=== PATIENT | female | born 1940 | race Caucasian/White ===

== ENCOUNTER 2021-10-09 05:18 | Inpatient (IN) | payer MEDICARE, BC ==
[2021-10-02 15:28] LABS: BASOPHILS # (AUTO) 0.1 X10'3 (0-0.2); BASOPHILS % (AUTO) 0.6 % (0-1); EOSINOPHILS # (AUTO) 0.2 X10'3 (0-0.9); EOSINOPHILS % (AUTO) 3.1 % (0-6); LYMPHOCYTES # (AUTO) 0.5 X10'3 (1.1-4.8); LYMPHOCYTES % (AUTO) 6.9 % (21-51); MEAN CORPUSCULAR HEMOGLOBIN 30.3 PG (27.0-31.0); MEAN CORPUSCULAR HGB CONC 33.5 g/dL (33.0-36.5); MEAN CORPUSCULAR VOLUME 90.6 FL (78-98); MEAN PLATELET VOLUME 7.6 FL (7.4-10.4); MONOCYTES # (AUTO) 0.7 X10'3 (0-0.9); MONOCYTES % (AUTO) 9.5 % (2-12); NEUTROPHILS # (AUTO) 6.2 X10'3 (1.8-7.7); NEUTROPHILS % (AUTO) 79.9 % (42-75); PRE OP PLATELET COUNT 294 X10'3 (140-440); RED BLOOD COUNT 3.53 X10'6 (4.20-5.60); RED CELL DISTRIBUTION WIDTH 20.1 % (11.5-14.5)
[2021-10-02 15:31] LABS: PRE OP HEMOGLOBIN 10.7 g/dL (12.0-16.0)
[2021-10-02 15:45] LABS: PRE OP INR 1.1 INR; PRE OP PROTIME 10.9 SECONDS (9.0-12.0)
[2021-10-02 15:48] LABS: ALBUMIN 2.9 G/DL (3.4-5.0); ALBUMIN/GLOBULIN RATIO 0.7 (1.1-1.5); ALKALINE PHOSPHATASE 79 IU/L (46-116); BLOOD UREA NITROGEN 13 MG/DL (7-18); CALCIUM 8.8 MG/DL (8.5-10.1); CHLORIDE 106 MMOL/L (99-107); PRE OP ALT 14 U/L (30-65); PRE OP ANION GAP 9 (8-16); PRE OP AST 20 U/L (10-37); PRE OP BILIRUB, TOTAL 0.5 MG/DL (0.0-1.0); PRE OP GLUCOSE 97 MG/DL (70-104); PRE OP POTASSIUM 3.8 MMOL/L (3.4-5.1); PRE OP SODIUM 140 MMOL/L (135-145); eGFR 53 ML/MIN
[2021-10-02 15:50] LABS: ANISOCYTOSIS 3+; PLATELET ESTIMATE NORMAL
[2021-10-02 15:51] LABS: ELLIPTOCYTES FEW; TEAR DROP CELLS FEW
[~2021-10-09] VITALS: Ht 157.5 cm; Wt 81.5 kg
[2021-10-09] VITALS (24 sets, daily range): BP systolic 112–153; BP diastolic 42–87
[~2021-10-09 05:18] MED LIST: AMLO5TAB PO; APIX5TAB3 PO; CHOL20004 PO; FAMO40TA58 PO; FERR325T28 PO; GARL1000 PO; KRIL1CAP29 PO; LOSA100T57 PO; METO-384 PO; MULT-1133 PO; RYT225T PO; TRIA15CR61 TP; VITA400T10 PO; ringers solution, lacted 1,000 ML IV SCH
[2021-10-09] MEDS ORDERED: DOCUMENT DATE & TIME OF BETA-BLOCKER PO ONE (05:30)
[2021-10-09] MEDS ORDERED: ceFOXitin 2GM-NS 100mL ADDvant 100 ML IV ONE (05:30)
[2021-10-09] MEDS ORDERED: famotidine 20mg tablet PO ONE (05:30)
[2021-10-09] MEDS ORDERED: MALTODEXTRIN/FRUCTOSE 0.68 KCAL/ML LIQUID 296ML BOTTLE PO ONE (06:00)
[2021-10-09] MEDS ORDERED: heparin, porcine 5000 units/ml vial SQ ONE (06:00)
[2021-10-09] MEDS ORDERED: metroNIDAZOLE-Flagyl 500mg/NS 100ML IVPB IV ONE (06:00)
[2021-10-09] MEDS ORDERED: LIDOcaine 1% (10mg/ml) 2ml vial ONE (06:04)
[2021-10-09] MEDS ORDERED: epiNEPHrine 1 mg/ml inj ONE (07:05)
[2021-10-09] MEDS ORDERED: BUPIVAcaine 0.5% inj/PF 30 ML ONE (07:05)
[2021-10-09] MEDS ORDERED: tobramycin 40mg/ml inj ONE (07:05)
[2021-10-09] MEDS ORDERED: CefTRIAXone 2000mg inj ONE (07:05)
[2021-10-09] MEDS ORDERED: LIDOcaine 1% W/epiNEPHrine 1:100,000 20ml vial ONE (07:08)
[2021-10-09] MEDS ORDERED: povidone-iodine 10% ointment 1 APPLIC APPLIC TP ONE ×2 (07:09→10:29)
[2021-10-09] MEDS ORDERED: propofol inj 20 ML IV ONE (07:14)
[2021-10-09] MEDS ORDERED: LIDOcaine 2% (20mg/ml) 5ml vial ONE (07:14)
[2021-10-09] MEDS ORDERED: midazolam 1 mg/ML 2ml injection ONE (07:14)
[2021-10-09] MEDS ORDERED: fentaNYL /PF 50mcg/ml 5ml ampule ONE (07:14)
[2021-10-09] MEDS ORDERED: rocuronium 10mg/ml inj IV ONE ×4 (07:15→10:34)
[2021-10-09] MEDS ORDERED: ondansetron/PF 4mg/2ml inj ONE (07:15)
[2021-10-09] MEDS ORDERED: dexamethasone sod phosphate 4mg/ml inj. ONE (07:15)
[2021-10-09] MEDS ORDERED: ringers solution, lacted 1,000 ML IV SCH (07:20)
[2021-10-09] MEDS ORDERED: ondansetron/PF 4mg/2ml inj IV PRN ×2 (07:20→14:05)
[2021-10-09] MEDS ORDERED: fentaNYL/PF 50MCG/1 ML 2ML syringe IV PRN ×2 (07:20)
[2021-10-09] MEDS ORDERED: HYDROmorphone/PF 0.2 MG/ML SYRINGE IV PRN (07:20)
[2021-10-09] MEDS ORDERED: hydrALAZINE 20mg/ml inj. IV PRN (07:20)
[2021-10-09] MEDS ORDERED: labetalol 20mg/4ml (5mg/ml) syringe IV PRN (07:20)
[2021-10-09] MEDS ORDERED: sevoflurane 250ml liquid IH ONE (07:24)
[2021-10-09] MEDS ORDERED: BUPIVAcaine 0.5% inj/PF 30 ml vial IJ ONE (08:56)
[2021-10-09] MEDS ORDERED: INDOCYANINE GREEN 25 MG/10 ML VIAL IV ONE (09:28)
[2021-10-09] MEDS ORDERED: sugammadex 200mg/2ml injection IV ONE (11:45)
--- NOTE | 2021-10-09 13:08 | NUR ---
Received from OR via HOSPITAL BED , accompanied by Anesthesiologist DR ALBERT and report given by Anesthesiolgist. PT PRESENTS WITH PIV 20G LEFT HAND, PT HAS COLOSTOMY WITH 2 ROBER DRAINS, CORTEZ CATHETER. VSS. Addendum: 10/09/21 at 1316 by Jaleesa Rosas RN, RN Amended: Links added.
[2021-10-09] MEDS: HYDROmorphone/PF 0.2 MG/ML SYRINGE IV PRN ×2 (13:40→14:20)
[2021-10-09] MEDS: normal saline 1000ml 1,000 ML IV SCH (14:05)
[2021-10-09] MEDS: potassium CL 20mEq in D5-1/2NS 1,000 ML IV SCH (14:05)
[2021-10-09] MEDS ORDERED: naloxone 0.4 mg/ml inj IV PRN (14:05)
[2021-10-09] MEDS: HYDROmorph/NS 0.2 mg/ml PCA 100 ML IV SCH ×5 (14:50→23:00)
[2021-10-09] MEDS: albuterol 2.5 MG/3 ML nebule NEB SCH ×2 (15:00→19:00)
[2021-10-09] MEDS ORDERED: HYDROmorph/NS 0.2 mg/ml PCA 100 ML IV SCH (15:00)
[2021-10-09] MEDS ORDERED: ceFOXitin 1 GM/D5W 50mL IVPB 100 ML IV SCH (16:00)
[2021-10-09] MEDS: metroNIDAZOLE-Flagyl 500mg/NS 100 ML IV SCH (16:20)
[2021-10-09] MEDS ORDERED: ceFOXitin inj 1,000 MG in normal saline 100ml IV soln 100 ML IV SCH (17:48)
--- NOTE | 2021-10-09 18:20 | NUR ---
Gave report to Preston [facility].
[2021-10-09] MEDS: heparin, porcine 5000 units/ml vial SQ SCH (20:36)
[2021-10-09] MEDS: propafenone 150mg tablet PO SCH (20:36)
[2021-10-10] MEDS: metroNIDAZOLE-Flagyl 500mg/NS 100 ML IV SCH ×3 (00:36→15:38)
[2021-10-10] MEDS: potassium CL 20mEq in D5-1/2NS 1,000 ML IV SCH ×2 (00:36→14:48)
[2021-10-10] MEDS: HYDROmorph/NS 0.2 mg/ml PCA 100 ML IV SCH ×5 (00:59→09:00)
[2021-10-10 02:00] VITALS: BP 122/36
[2021-10-10 06:00] VITALS: BP 120/40
--- NOTE | 2021-10-10 06:05 | NUR ---
received report from tj beauchamp
[2021-10-10 06:26] LABS: BASOPHILS % (AUTO) 0 % (0-1); EOSINOPHILS % (AUTO) 0 % (0-6); HEMATOCRIT 31.3 % (35.0-45.0); LYMPHOCYTES # (AUTO) 0.2 X10'3 (1.1-4.8); LYMPHOCYTES % (AUTO) 2.6 % (21-51); MEAN CORPUSCULAR HEMOGLOBIN 30.7 PG (27.0-31.0); MEAN CORPUSCULAR VOLUME 95.9 FL (78-98); MEAN PLATELET VOLUME 7.7 FL (7.4-10.4); MONOCYTES # (AUTO) 0.7 X10'3 (0-0.9); MONOCYTES % (AUTO) 7.8 % (2-12); NEUTROPHILS # (AUTO) 7.7 X10'3 (1.8-7.7); NEUTROPHILS % (AUTO) 89.6 % (42-75); PLATELET COUNT 227 X10'3 (140-440); RED BLOOD COUNT 3.26 X10'6 (4.20-5.60); RED CELL DISTRIBUTION WIDTH 19.2 % (11.5-14.5); WHITE BLOOD COUNT 8.6 X10'3 (4.5-11.0)
--- NOTE | 2021-10-10 06:28 | NUR ---
Problems reprioritized. Patient report given, questions answered & plan of care reviewed with EVONNE. Addendum: 10/10/21 at 0629 by Kee Cox RN Amended: Links added.
[2021-10-10 06:44] LABS: ALBUMIN 2.3 G/DL (3.4-5.0); ANION GAP 7 (8-16); BLOOD UREA NITROGEN 13 MG/DL (7-18); BUN/CREATININE RATIO 10.2 (6.6-38.0); CALCIUM 7.8 MG/DL (8.5-10.1); CHLORIDE 106 MMOL/L (99-107); CREATININE 1.27 MG/DL (0.40-0.90); GLUCOSE 172 MG/DL (70-104); POTASSIUM 4.9 MMOL/L (3.5-5.1); SODIUM 138 MMOL/L (135-145); TOTAL CARBON DIOXIDE 24.8 MMOL/L (24-32); eGFR 40 ML/MIN
[2021-10-10] MEDS: losartan 50mg tablet PO SCH (07:05)
[2021-10-10] MEDS: amLODIPine 5mg tablet PO SCH (07:06)
[2021-10-10] MEDS: metoprolol succinate 25mg (24-HOUR) SR. Tablet PO SCH (07:08)
[2021-10-10] MEDS: propafenone 150mg tablet PO SCH ×2 (07:09→20:11)
[2021-10-10] MEDS: heparin, porcine 5000 units/ml vial SQ SCH ×2 (07:12→20:14)
[2021-10-10] MEDS: albuterol 2.5 MG/3 ML nebule NEB SCH ×4 (08:07→20:22)
--- NOTE | 2021-10-10 08:49 | NUR ---
pt is a one person assist to bathroom w/fww, pt seems to tolerate activity well
[2021-10-10 10:00] VITALS: BP 117/40
[2021-10-10] MEDS: PCA WASTE DOCUMENTATION MC SCH ×2 (10:39→10:45)
[2021-10-10] MEDS: HYDROmorphone inj. 0.5 MG/0.5 ML DISP.SYRIN IV PRN ×3 (10:59→22:35)
--- NOTE | 2021-10-10 14:04 | NUR ---
Late entry for 10/10/2021 Arrived in room and pt is awake. She states that she would like to start education when daughter and spouse are present and they will be present in am. Appt made with her for 10-130 am for pouch change and education. Report to primary nurse to empty pouch. Educated pt on emptying pouch when 06/05 full. Provided her with ileostomy packet to review. Addendum: 10/11/21 at 1458 by Joellen Murray RN Amended: Links added.
[2021-10-10 18:00] VITALS: BP 132/51
--- NOTE | 2021-10-10 18:17 | NUR ---
gave report nicole rivera, rn
--- NOTE | 2021-10-10 18:30 | NUR ---
Patient in room ORTHO 4017. I have received report from EVONNE HDZ and had the opportunity to ask questions and assume patient care.
[2021-10-10 22:00] VITALS: BP 125/48
--- NOTE | 2021-10-11 06:04 | NUR ---
Problems reprioritized. Patient report given, questions answered & plan of care reviewed with AXEL HDZ.
--- NOTE | 2021-10-11 06:05 | NUR ---
Patient in room ORTHO 4017. I have received report from Meeta HDZ and had the opportunity to ask questions and assume patient care.
[2021-10-11 06:36] LABS: BASOPHILS % (AUTO) 0.4 % (0-1); EOSINOPHILS % (AUTO) 0.2 % (0-6); HEMATOCRIT 29.1 % (35.0-45.0); HEMOGLOBIN 9.6 g/dl (12.0-16.0); LYMPHOCYTES # (AUTO) 0.5 X10'3 (1.1-4.8); LYMPHOCYTES % (AUTO) 6.2 % (21-51); MEAN CORPUSCULAR HEMOGLOBIN 30.5 PG (27.0-31.0); MEAN CORPUSCULAR HGB CONC 33.1 g/dL (33.0-36.5); MEAN CORPUSCULAR VOLUME 92.2 FL (78-98); MEAN PLATELET VOLUME 7.9 FL (7.4-10.4); MONOCYTES # (AUTO) 1.3 X10'3 (0-0.9); MONOCYTES % (AUTO) 15.3 % (2-12); NEUTROPHILS # (AUTO) 6.5 X10'3 (1.8-7.7); NEUTROPHILS % (AUTO) 77.9 % (42-75); PLATELET COUNT 238 X10'3 (140-440); RED BLOOD COUNT 3.16 X10'6 (4.20-5.60); RED CELL DISTRIBUTION WIDTH 18.7 % (11.5-14.5); WHITE BLOOD COUNT 8.3 X10'3 (4.5-11.0)
[2021-10-11 06:56] LABS: ALBUMIN 2.5 G/DL (3.4-5.0); ANION GAP 6 (8-16); BLOOD UREA NITROGEN 15 MG/DL (7-18); BUN/CREATININE RATIO 10.6 (6.6-38.0); CALCIUM 8.2 MG/DL (8.5-10.1); CHLORIDE 104 MMOL/L (99-107); CREATININE 1.41 MG/DL (0.40-0.90); GLUCOSE 108 MG/DL (70-104); POTASSIUM 4.6 MMOL/L (3.5-5.1); SODIUM 135 MMOL/L (135-145); TOTAL CARBON DIOXIDE 24.6 MMOL/L (24-32); eGFR 36 ML/MIN
[2021-10-11 07:00] VITALS: BP 129/48
[2021-10-11] MEDS: albuterol 2.5 MG/3 ML nebule NEB SCH ×4 (08:05→19:37)
[2021-10-11] MEDS: amLODIPine 5mg tablet PO SCH (08:24)
[2021-10-11] MEDS: propafenone 150mg tablet PO SCH ×2 (08:25→19:45)
[2021-10-11] MEDS: metoprolol succinate 25mg (24-HOUR) SR. Tablet PO SCH (08:25)
[2021-10-11] MEDS: losartan 50mg tablet PO SCH (08:25)
[2021-10-11] MEDS: heparin, porcine 5000 units/ml vial SQ SCH ×2 (08:26→19:47)
[2021-10-11 10:00] VITALS: BP 140/44
[2021-10-11] MEDS: HYDROmorphone inj. 0.5 MG/0.5 ML DISP.SYRIN IV PRN (10:22)
[2021-10-11] MEDS: normal saline 1000ml 1,000 ML IV SCH (11:42)
[2021-10-11] MEDS ORDERED: furosemide 20 MG/2 ML vial IV ONE (13:10)
[2021-10-11] MEDS ORDERED: albumin (human) 25% 100 ML IV solution IV ONE (13:10)
--- NOTE | 2021-10-11 14:48 | NUR ---
Ileostomy pouch is half full of liquid stool and this was emptied. Removed pouch stoma is brick red moist and noted to be in crease of abd. The stoma measures 29mm. Placed larger appliance due to availability at the moment. Alondra stomal skin is intact. Educated verbal and demonstration w/ return demonstration from daughter and spouse how to attach bag to wafer, mold wafer. Demonstration w/ verbal education on how to prep alondra stomal skin, place ostomy wafter and use of eakins ring. Due to body habitus and crease in abd where appliance will rest, she will need convexity and stoma paste w/ ostomy belt. Educated on community resource at [facility] for issues w/ fit which likely will occur. Provided and reviewed Ostomy To Go Kit list and directed daughter to [employer] videos for continued education. Will return tomorrow for more education and questions. Returned to room after report from Dr Crisostomo that pt had leak in pouch. He placed a new pouch. Provided primary nurse with information on how to place the Vitaly [id number] one piece placed in pt's room that is precut by LEO. Also eduated the patient and daughter, provided ostomy belt for use when new pouch is placed. Will bring ostomy paste tomorrow to aide in filling in crease in abd. Addendum: 10/11/21 at 1458 by Joellen Murray RN Amended: Links added.
[2021-10-11 18:00] VITALS: BP 155/60
--- NOTE | 2021-10-11 18:28 | NUR ---
Problems reprioritized. Patient report given, questions answered & plan of care reviewed with Meeta HDZ.
--- NOTE | 2021-10-11 18:30 | NUR ---
Patient in room ORTHO 4017. I have received report from AXEL HDZ and had the opportunity to ask questions and assume patient care.
[2021-10-11 22:00] VITALS: BP 139/45
[2021-10-12 06:00] VITALS: BP 114/51
--- NOTE | 2021-10-12 06:30 | NUR ---
Problems reprioritized. Patient report given, questions answered & plan of care reviewed with VALERIE HDZ.
[2021-10-12] MEDS: albuterol 2.5 MG/3 ML nebule NEB SCH ×2 (07:00→11:59)
[2021-10-12 07:44] LABS: BASOPHILS % (AUTO) 0.7 % (0-1); EOSINOPHILS # (AUTO) 0.1 X10'3 (0-0.9); EOSINOPHILS % (AUTO) 1.9 % (0-6); HEMOGLOBIN 9.7 g/dl (12.0-16.0); LYMPHOCYTES # (AUTO) 0.5 X10'3 (1.1-4.8); LYMPHOCYTES % (AUTO) 9.3 % (21-51); MEAN CORPUSCULAR HEMOGLOBIN 30.1 PG (27.0-31.0); MEAN CORPUSCULAR HGB CONC 32.3 g/dL (33.0-36.5); MEAN PLATELET VOLUME 8.4 FL (7.4-10.4); MONOCYTES # (AUTO) 1.1 X10'3 (0-0.9); MONOCYTES % (AUTO) 18.6 % (2-12); NEUTROPHILS % (AUTO) 69.5 % (42-75); PLATELET COUNT 222 X10'3 (140-440); RED BLOOD COUNT 3.23 X10'6 (4.20-5.60); RED CELL DISTRIBUTION WIDTH 18.6 % (11.5-14.5); WHITE BLOOD COUNT 5.7 X10'3 (4.5-11.0)
--- NOTE | 2021-10-12 07:52 | NUR ---
PAGER ID: [phone] MESSAGE: [phone] [phone] Re: Stuck please call have questions on BP medications current vitals are 125/34 HR 61 has a lot of BP medications Addendum: 10/12/21 at 0843 by Tatiana Lee RN ok to give Rythmol and Metoprolol now hold other 2 medications and recheck later.
[2021-10-12] MEDS: losartan 50mg tablet PO SCH (08:00)
[2021-10-12] MEDS: amLODIPine 5mg tablet PO SCH (08:00)
[2021-10-12 08:01] LABS: ALBUMIN 2.5 G/DL (3.4-5.0); ANION GAP 6 (8-16); BLOOD UREA NITROGEN 10 MG/DL (7-18); BUN/CREATININE RATIO 8.6 (6.6-38.0); CALCIUM 8.5 MG/DL (8.5-10.1); CHLORIDE 107 MMOL/L (99-107); CREATININE 1.16 MG/DL (0.40-0.90); GLUCOSE 100 MG/DL (70-104); POTASSIUM 4.5 MMOL/L (3.5-5.1); SODIUM 139 MMOL/L (135-145); TOTAL CARBON DIOXIDE 26.1 MMOL/L (24-32); eGFR 45 ML/MIN
[2021-10-12 08:25] LABS: ANISOCYTOSIS 2+; HYPOCHROMASIA 1+; PLATELET ESTIMATE NORMAL; TOTAL CELLS COUNTED 100
[2021-10-12] MEDS: propafenone 150mg tablet PO SCH (08:51)
[2021-10-12] MEDS: metoprolol succinate 25mg (24-HOUR) SR. Tablet PO SCH (08:51)
[2021-10-12] MEDS: heparin, porcine 5000 units/ml vial SQ SCH (08:52)
[2021-10-12 10:00] VITALS: BP 127/54
[2021-10-12] MEDS ORDERED: apixaban 5mg tablet PO SCH (11:55)
--- NOTE | 2021-10-12 11:58 | NUR ---
[facility] assessment for 81 year old female pt admitted for ileal radiation enteritis, rectal cancer and rectal stenosis, s/p LAR, diverting ileostomy and small bowel resection, laparoscopic takedown splenic flexure, extensive lysis of adhesions. Pt has hx of atrial flutter, COPD, HTN and perm pacemaker, rectal cancer. Arrived on unit and pt has her daughter and spouse with her at bedside. Pt to go home this afternoon. Ostomy pouch placed yesterday by MD remains intact w/ no leaks noted. Changed position of drainage bag and place ostomy belt with education provided. Provided them with demonstration and return demonstration by family on how to make template and cut wafer to size of 29mm. Provided them with scissors and box of [id number] [email or web address] one piece convex pouches. Faxed form to [employer] starts program for pt. Review of diet restrictions as well as how to manage firming stool w/ non pharmacological methods. Pt, daughter and spouse all verbalized understanding. Pt left in care of primary nurse, report provided and bed left in low position w/ call light in reach. Addendum: 10/12/21 at 1207 by Joellen Murray RN Amended: Links added.
--- NOTE | 2021-10-12 12:02 | NUR ---
Initial: Pt admitted w/ rectal stricture with a history of rectal cancer, status post laparoscopic Low Anterior Resection, diverting end ileostomy, small bowel resection, laparoscopic takedown splenic flexure, Extensive lysis of adhesions 10/09 per EMR. Previously on Clear/Full liquids, now on Low residue diet since 10/11 w/ mostly 100% intake of meals throughout LOS. Ileostomy noted w/ 300ml output today. Provided pt w/ written and verbal ileostomy nutrition therapy ed w/ RD contact info. No nutrition intervention implemented at this time, will continue to monitor, Recs; 1. Continue Low fiber diet as tolerated 2. Bowel care per MD 3. Weekly wts Addendum: 10/12/21 at [address] Amended: Links added.
[2021-10-12] MEDS ORDERED: HYDR-3965 PO (12:38)
--- NOTE | 2021-10-12 14:30 | NUR ---
Patients discharge instructions reviewed with patient and family, All questions answered. Patients IV dc's cannula intact. Patient sent home with ostomy supplies. Patient states she has all her belongings. Patient taken to vehicle via wheelchair by PCT>
== END 2021-10-12 14:35 | disposition home or self-care (01) | DRG 330 ==
LOC: PAS IN 05:38 → ORTHO 4S 15:15
PROVIDERS: ADMIT Colon & Rectal Surgery; ATTEND Colon & Rectal Surgery
PROC: 0DTP4ZZ Resection of Rectum, Percutaneous Endoscopic Approach (ICD-10-PCS; 2021-10-09)
PROC: 0DB84ZZ Excision of Small Intestine, Percutaneous Endoscopic Approach (ICD-10-PCS; 2021-10-09)
PROC: 0D1B4Z4 Bypass Ileum to Cutaneous, Percutaneous Endoscopic Approach (ICD-10-PCS; principal; 2021-10-09 07:24)
DX: C20 Malignant neoplasm of rectum (principal); I48.92 Unspecified atrial flutter; K52.0 Gastroenteritis and colitis due to radiation; K62.4 Stenosis of anus and rectum; E87.70 Fluid overload, unspecified; I10 Essential (primary) hypertension; J44.9 Chronic obstructive pulmonary disease, unspecified; K66.0 Peritoneal adhesions (postprocedural) (postinfection); Y84.2 Radiological procedure and radiotherapy as the cause of abnormal reaction of the patient, or of later complication, without mention of misadventure at the time of the procedure; Z90.710 Acquired absence of both cervix and uterus; Z92.3 Personal history of irradiation; Z95.0 Presence of cardiac pacemaker; Z88.8 Allergy status to other drugs, medicaments and biological substances; Z91.012 Allergy to eggs; Z79.899 Other long term (current) drug therapy
CPT/HCPCS: 36415; 71046; 80048; 80053; 82948; 85007; 85008; 85025; 85610; 85730; 86885; 86900; 86901; 87081; 88305; 88309; 94640; 94760; 97116; 97161; 97530; A4338; A4355; A4402; A4421; A4618; A6402; A6449; A7000; C1758; G0378; J0171; J0694; J0696; J1100; J1170; J1644; J1940; J2250; J2405; J2704; J3010; J3260; J3480; J3490; J7030; J7120; P9047; S0020; U0003; U0005